=== PATIENT | female | born 2005 | race African-American/Black ===

== ENCOUNTER 2023-10-19 19:56 | Emergency (ER) | payer BC, SELFPAY ==
--- NOTE | ~2023-10-19 | US_ITS ---
EXAMINATION: US transvaginal DATE: 10/19/2023 23:15 INDICATION: L ovarian cyst, lower abd pain, r/o torsion TECHNIQUE: Multiple transabdominal and endovaginal sonographic images of the pelvis were obtained. COMPARISON: CT abdomen and pelvis, same date. FINDINGS: Uterus: 7.1 x 2.0 x 2.8 cm. Uterine volume 21 cc. Endometrial complex measu 2mm. Right Ovary: 2.1 x 1.4 x 1.3 cm. Vascular flow is present. No adnexal mass Left Ovary: 3.4 x 2.6 x 2.7 cm. Vascular flow is present. 2.6 cm simple ovarian cyst There is no free fluid in the pelvis. IMPRESSION: Small uterus. Uterine volume of 21 cc is below one standard deviation from the mean for age. Prior re commendation for gynecology consultation is unchanged, particularly if there is a history of amenorrh ea or irregular menses. Simple left ovarian cyst. Reviewed, dictated and finalized at location K. IMPRESSION: Small uterus. Uterine volume of 21 cc is below one standard deviation from the mean for age. Prior recommendation for gynecology consultation is unchanged, pa rticularly if there is a history of amenorrhea or irregular menses. Simple left ovarian cyst.
--- NOTE | ~2023-10-19 | CT_ITS ---
EXAMINATION: CT abdomen pelvis w con DATE: 10/19/2023 22:09 INDICATION: lower abd pain, nausea/vomiting TECHNIQUE: Computed tomography (CT) of the abdomen and pelvis was performed with 100 mL Omnipaque-350 intravenous contrast. Automated exposure control and iterative reconstruction technique were employe d. The dose-length product was 282.49 mGy-cm. COMPARISON: None. FINDINGS: Lower thorax: Unremarkable Liver: Normal. Biliary/Gallbladder: Gallbladder is normal. No bile duct dilation. Pancreas: No mass or duct dilation. Spleen: Normal. Adrenals:No mass. Kidneys: No suspicious mass, obstructing stone, or hydronephrosis. GI tract: Mild distal esophageal and gastric wall edema. No small or large bowel dilation. Normal rob endix. Mesentery/Peritoneum: No ascites, mass, or free air. Retroperitoneum: No mass. Pelvis: Normal urinary bladder. Small uterus. Normal bilateral ovaries. 3 cm simple left ovarian cyst which requires no additional imaging at this time. Soft Tissues: Soft tissues and body wall unremarkable. Bones: No acute osseous finding. IMPRESSION: Mild esophagitis/gastritis. Otherwise, no acute abdominal pelvic process detected. 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 If not a known diagnosis, recommend gynecology r eferral and pelvic MRI. Reviewed, dictated and finalized at location K. IMPRESSION: Mild esophagitis/gastritis. Otherwise, no acute abdominal pelvic process detected. 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 If not a known diagnosis, recommend gynecology referral and pelvic MRI.
[2023-10-19 20:13] VITALS: BP 131/83; PULSE 97; RESP 15; TEMP 36.5; O2SAT 100
[2023-10-19 21:05] LABS: Basophils Percent Auto 0.5 % (0.2-1.2); Eosinophils Absolute Auto 0.1 K/mm3 (0-0.3); Eosinophils Percent Auto 1.3 % (0-4.4); Hematocrit 36.1 % (37.0-47.0); Hemoglobin 12.2 g/dL (12.0-15.0); Immature Granulocyte Absolute 0.01 K/mm3 (0.00-0.031); Immature Granulocyte Percent A 0.2 % (0-0.5); Lymphocytes Absolute Auto 2.27 K/mm3 (0.9-3.2); Lymphocytes Percent Auto 36.8 % (18.3-44.2); Mean Corpuscular HGB Conc 33.8 g/dl (32-36); Mean Corpuscular Hemoglobin 31.6 pg (26-34); Mean Corpuscular Volume 93.5 fl (80-100); Mean Platelet Volume 12.6 fl (7.4-10.4); Monocytes Absolute Auto 0.5 K/mm3 (0.1-0.6); Monocytes Percent Auto 7.5 % (2.6-8.5); Neutrophils Absolute Auto 3.3 K/mm3 (1.3-6.7); Neutrophils Percent Auto 53.7 % (45.5-73.1); Platelet Count Result 158 k/mm3 (150-375); Red Blood Count 3.86 M/mm3 (4.2-5.4); Red Cell Distribution Width 11.9 % (11.5-14.5); White Blood Count 6.2 K/mm3 (4.5-10.0)
[2023-10-19 21:24] LABS: Alanine Aminotransferase 12 U/L (6-35); Albumin Level 4.7 g/dL (3.5-5.1); Alkaline Phosphatase 69 U/L (38-126); Anion Gap 11 mmol/L (4-12); Aspartate Amino Transferase 24 U/L (14-36); Bilirubin,Total 0.6 mg/dL (0.2-1.3); Blood Urea Nitrogen 12 mg/dL (7-17); Calcium 9.2 mg/dL (8.4-10.2); Carbon Dioxide 25 mmol/L (22-30); Chloride 104 mmol/L (98-107); Estimated CRCL calculation 77 ml/min; Estimated Glomerular Filt Rate > 60; Glucose 87 mg/dL (65-110); Lipase 21 U/L (23-300); Potassium 3.4 mmol/L (3.4-5.0); Sodium 140 mmol/L (137-145)
[2023-10-19 21:28] LABS: Bacteria Urine 3+ /hpf; Non Pathogenic Casts 0-2; Squamous Epithelial Cell Urine Moderate /hpf (Few)
[2023-10-19 21:43] LABS: Appearance Urine Cloudy (Clear); Bilirubin Urine Negative (Negative); Blood Urine 3+ (Negative); Color Urine Yellow (Yellow); Glucose Urine UA Negative (Negative); Ketones Urine 2+ mg/dL (Negative); Leukocyte Esterase Ur 1+ LEU/UL (Negative); Nitrate Urine Negative (Negative); Protein Urine 1+ mg/dL (Negative); Specific Grav Ur 1.025 (1.001-1.035); pH Urine 5.5 (5.0-9.0)
[2023-10-19 21:46] LABS: Add Urine Microscopic? YES
--- NOTE | 2023-10-19 21:55 | ED.ABDPAIN ---
HPI - Abdominal Pain General Chief Complaint: Abdominal Pain Stated Complaint: lower abd cramping, vaginal bleeding Time Seen by Provider: 10/19/23 20:37 Source: patient Mode of arrival: ambulatory Limitations: no limitations History of Present Illness HPI narrative: Patient is a 18-year-old female who presents the ED with report of lower abdominal pain /cramping. Patient reports she is currently on her menstrual cycle. She does not have regular monthly menstrual cycles (typically every 3 months or so), but began having bleeding yesterday. She notes having intermittent lower abdominal cramping, but states cramping has been more severe than usual. She has not tried anything for pain. Reports mild nausea, denies vomiting. Denies diarrhea, constipation, fevers, dysuria. Related Data Allergies Allergy/AdvReac Type Severity Reaction Status Date / Time No Known Allergies Allergy Verified 10/19/23 20:13 Review of Systems Review of Systems: CONSTITUTIONAL: Denies fever, chills, or sweats. GASTROINTESTINAL: See HPI. GENITOURINARY: See HPI. MUSCULOSKELETAL: Denies back pain, extremity pain, myalgia. All systems reviewed & are unremarkable except as noted in HPI and below Exam Narrative: GENERAL: Well appearing, well-nourished, non-toxic, in no acute distress. HEAD: Normocephalic, atraumatic. RESPIRATORY: Airway patent, respirations nonlabored. Clear to auscultation bilaterally, no rales, rhonchi, wheezing. CARDIOVASCULAR: Regular rate and rhythm without murmurs, rubs, or gallops. ABDOMINAL: Soft, mild tenderness throughout lower abdomen, left lower quadrant, nondistended. Normoactive BS. MUSCULOSKELETAL: Moves all extremities. No gross deformities. SKIN: Warm, dry, normal color. NEURO: A&O X3. Speech clear. Cranial nerves II-XII grossly intact. Steady gait. No ataxic movements. PSYCHIATRIC: Mildly anxious. Normal interaction. Course Vital Signs Vital signs: Vital Signs Temperature 97.7 F 10/19/23 20:13 Pulse Rate 97 10/19/23 20:13 Respiratory Rate 15 10/19/23 20:13 Blood Pressure 131/83 10/19/23 20:13 Pulse Oximetry 100 10/19/23 20:13 Oxygen Delivery Room Air 10/19/23 20:13 Temperature 97.7 F 10/19/23 20:13 Pulse Rate 89 10/20/23 00:24 Respiratory Rate 15 10/20/23 00:24 Blood Pressure 128/56 L 10/20/23 00:24 Pulse Oximetry 100 10/20/23 00:24 Oxygen Delivery Room Air 10/19/23 20:13 MDM - Abdominal Pain MDM Narrative Medical decision making narrative: patient presented to ED with 2 day history of intermittent lower abdominal cramping, currently on menstrual cycle though states cramping is worse than usual. Vital signs are stable upon arrival. Patient is in no acute distress. Initially she did not want anything for pain or nausea, but later did call out asking for something for pain. Tylenol given in the ED. Patient had not tried anything for pain prior to arrival. Basic laboratory studies are fairly unremarkable. No leukocytosis or anemia. Stable electrolytes. Urinalysis with 2+ ketones, possible infection with 1+ leuk esterase, 11-20 white blood cells, 3+ urine bacteria. Moderate squamous cells noted. Will send for culture and treat in case this is contributing to lower abdominal pain. 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 Pelvic ultrasound was obtained as patient does have tenderness throughout left lower abdomen on exam, rule out torsion, US showing good vascular blood flow to both ovaries, does show simple left-sided ovarian cyst, does also again show small uterine size, recommending OBGYN follow-up. Patient does have an OBGYN that she can see. Discussed lab and imaging findings, overall reassuring workup with patient. Advise patient to continue Tylenol and ibuprofen as needed for pain, utilize heating pad, have close follow-up with OBGYN. She was given return precautions.
[2023-10-19] MEDS: SODIUM CHLORIDE 0.9% IV 1,000 ML 999 ML IV CONT (22:14)
[2023-10-19] MEDS: ACETAMINOPHEN 500 MG TABLET 1000 MG PO (22:31)
--- NOTE | 2023-10-19 22:49 | PC.NURSE ---
2250-REPORT TO MEDINA MAHARAJ. PATIENT MOVED TO ED 14.
[2023-10-19] MEDS: KETOROLAC 30 MG/ML VIAL (*BKC) IV PUSH (23:48)
[2023-10-20 00:24] VITALS: BP 128/56; PULSE 89; RESP 15; O2SAT 100
== END 2023-10-20 00:25 | disposition home or self-care (01) ==
PROVIDERS: Emergency Provider Physician Assistant
DX: N30.01 Acute cystitis with hematuria (principal); N83.202 Unspecified ovarian cyst, left side; N94.6 Dysmenorrhea, unspecified
CPT/HCPCS: 36415; 74177; 76830; 80053; 81001; 81025; 83690; 85025; 87086; 96361; 96374; 99284; A9270; J1885; J7030; Q9967